=== PATIENT | male | born 1995 | race Caucasian/White ===

== ENCOUNTER 2021-10-23 04:51 | Emergency (ER) | payer MEDICAID ==
[~2021-10-23] VITALS: Ht 167.6 cm; Wt 99.8 kg
--- NOTE | 2021-10-23 05:30 | NUR ---
BIBRA 89 FROM HOME C/O UPPER BACK PAIN S/P FALLING THIS MORNING. HX OF SPINAL SX. CURRENTLY PRESCRIBED 20MG BACLOFEN, BUT HAS ONLY BEEN TAKING 10MG DUE TO RUNNING LOW ON MEDICATION. 10MG BACLOFEN TAKEN LAST AT 0300. PT AWAKE AND ALERT X4 BREATHING EVEN AND UNLABORED. ALL V/S WNL.
[2021-10-23] MEDS ORDERED: HYDROCODONE/APAP 10/325MG TABLET ONE (06:15)
[2021-10-23] MEDS ORDERED: BACLOFEN (10 MG) 10 MG TABLET ONE (06:25)
[2021-10-23] MEDS ORDERED: HYDROCODONE/APAP 10/325MG TABLET PO ONE (06:30)
[2021-10-23] MEDS ORDERED: BACLOFEN (10 MG) 10 MG TABLET PO ONE (06:30)
[2021-10-23] MEDS ORDERED: BACL20TA PO (07:58)
--- NOTE | 2021-10-23 08:24 | NUR ---
Patient discharged to home in stable condition. Written and verbal after care instructions given. Patient verbalizes understanding of instruction.
[2021-10-23 08:34] VITALS: BP 128/70
== END 2021-10-23 08:25 | disposition home or self-care (01) ==
LOC: ER 05:00
DX: S22.051D Stable burst fracture of T5-T6 vertebra, subsequent encounter for fracture with routine healing (principal); M54.6 Pain in thoracic spine; Z60.2 Problems related to living alone; Z79.899 Other long term (current) drug therapy; X58.XXXD Exposure to other specified factors, subsequent encounter
CPT/HCPCS: 72128-TC